=== PATIENT | male | born 1950 | race Caucasian/White ===

== ENCOUNTER → 2016-11-01 | Outpatient (CLI) | payer OTHER ==
[~2016-11-01] MED LIST: ALLOPURINOL 10100 M1 PO; ASA5UEC PO; CELEXA 10 MG TA10 M1 PO; CENTRUM SILVER1 EAC1 PO; CENTRUM SILVER1 EAC2 PO; CLONAZEPAM 0.50.5 M1 PO; COZAAR 50 MG TA50 M2 PO; CRESTOR5 MG PO; CYMBALTA30 MG PO; DESYREL50 MG PO; FAMOTIDINE40 MG PO; FISH OIL 1,0001 EAC5 PO; FLONASE 0.05%50 MCG NASAL; HYDROCODONE-AP1 EAC6 PO; IBUPROFEN 600600 M1 PO; LEVAQUIN 500 M500 MG PO; LISINOPRIL5 MG PO; MAGOX 400400 MG PO; MELOXICAM7.5 MG PO; PLAVIX 75 MG TA75 MG PO; PREDNISONE 20 M20 M1 PO; PROVENTIL HFA6.7 G1 INH; TOPROL XL50 MG PO; TRAZODONE HCL50 MG PO; VENTOLIN HFA 1818 GM INH; XANAX 0.5 MG0.5 MG PO; ZANTAC 150MG T150 MG PO; ZANTAC 7575 MG PO; ZPAK PO
== END ==
LOC: RAD 15:56
DX: D86.9 Sarcoidosis, unspecified (principal); R91.8 Other nonspecific abnormal finding of lung field

== ENCOUNTER → 2016-11-18 | Outpatient (CLI) | payer OTHER ==
--- NOTE | ~2016-11-18 | CNG ---
[facility] [place] [address] CYTO-NONGYN REPORT PROCEDURE Name: GENEVIEVE CORONEL Room #: REG FARNAZ Jess#: [id number] Admission: 11/18/16 Date of : 50 Discharge: Report #: [id number] Path Case #: [id number] CYTOPATHOLOGY REPORT COLLECTION DATE: 11/18/2016 RECEIVED DATE: 11/18/2016 SUBMITTING PHYS: Dr. Khalif Aceves OTHER PHYS: Dr. Yuriy Cadet CLINICAL HISTORY: Cough. SPECIMEN(S) RECEIVED: A.Bronchial brushings, RLL B.Bronchial brush rinse, RLL C.Bronchoalveolar lavage, RLL * * * * * * * * * * * * FINAL DIAGNOSIS: A. Lung, RLL, Bronchial brushings: NEGATIVE FOR MALIGNANT CELLS. Bronchial epithelial cells, pulmonary macrophages, and blood. B. Lung, RLL, Bronchial brush rinse: NEGATIVE FOR MALIGNANT CELLS. Bronchial epithelial cells, pulmonary macrophages, and mucus. C. Lung, RLL, Bronchoalveolar lavage: NEGATIVE FOR MALIGNANT CELLS. Bronchial epithelial cells, numerous pulmonary macrophages, and blood. PATHOLOGIST: Ldaan Coon M.D. REPORT ELECTRONICALLY SIGNED BY: Ladan Coon M.D. DATE/TIME: 11/19/2016 12:55 * * * * * * * * * * * * GROSS PATHOLOGY: A. Bronchial brushings, RLL: The specimen is labeled "Genevieve Coronel" and consists of three fixed slides. B. Bronchial brush rinse, RLL: The specimen is labeled "Berna Genevieve Santizo" and consists of a brush tip in fixative. One ThinPrep slide was prepared. C. Bronchoalveolar lavage, RLL: The specimen is submitted fixed, labeled "Berna Genevieve Santizo". Received by the Cytology Department is 20 mL of cloudy red fluid. One ThinPrep slide was prepared. (clt 11.18.2016) PRODUCTION PACKAGER(S): MEMO Nguyen(ASCP) INITIAL CPT CODE(S): A; [address] [address] CYTO-NONGYN REPORT PROCEDURE Name: GENEVIEVE CORONEL Room #: FROYLAN Mercado#: [id number] Admission: 11/18/16 Date of : 50 Discharge: Report #: [id number] Path Case #: [id number]; [id number] C; [id number] Professional services performed by [facility] at [address], [place] [address] Technical services performed by [facility] at [address] [place] [address]., [address], [place] [address]. [address], [facility] [address] [place] [address] PHONE: [phone] DIRECTOR: Javier Rodriguez M.D. * * * END OF REPORT * * *
--- NOTE | ~2016-11-18 | S ---
[facility] [place] [address] SURGICAL PATH RPT PROCEDURE Name: ERICGENEVIEVE SARMIENTO Room #: REG [facility] M.R.#: [id number] Admission: 11/18/16 Date of : 50 Discharge: Report #: [id number] Path Case #: [id number] PATHOLOGY REPORT COLLECTION DATE: 11/18/2016 RECEIVED DATE: 11/18/2016 SUBMITTING PHYS: Dr. Khalif Aceves OTHER PHYS: Dr. Yuriy Cadet SPECIMEN(S) RECEIVED: A.RLL biopsy forceps * * * * * * * * * * * * FINAL DIAGNOSIS: "RLL biopsy forceps", bronchial biopsy: - Scant strips of benign bronchial epithelial cells admixed with blood and fibrin. (See comment) COMMENT: Please see also the cytology specimen ([id number]). Clinical, radiographic and bronchoscopic correlation is recommended. (CLW:saud; d/t: 11/19/2016) PATHOLOGIST: Sabine May M.D. REPORT ELECTRONICALLY SIGNED BY: Sabine May M.D. DATE/TIME: 11/19/2016 14:31 * * * * * * * * * * * * GROSS PATHOLOGY: The specimen is received in formalin labeled "Genevieve Coronel RLL biopsy forceps". Received are multiple minute fragments of pale norwood soft tissue measuring 0.3 x 0.3 x 0.1 cm in aggregate dimensions. The specimen is filtered and entirely submitted in cassette A1. (CAA; 11/18/2016) CLINICAL HISTORY: None provided INITIAL CPT CODE(S): A; 01873 Professional services performed by [facility] at [facility] [address], [place] [address] Technical services performed by [facility] at [address] [place] [address] [place] [address] SURGICAL PATH RPT PROCEDURE Name: GENEVIEVE CORONEL Room #: REG FARNAZ Mercado#: [id number] Admission: 11/18/16 Date of : 50 Discharge: Report #: [id number] Path Case #: [id number] [place] [address]. [facility] [address] [address] PHONE: [phone] DIRECTOR: Javier Rodriguez M.D. * * * END OF REPORT * * *
--- NOTE | ~2016-11-18 | P ---
[facility] [place] [address] PROCEDURE REPORT Name: ERICGENEVIEVE SARMIENTO Room #: REG [facility].#: [id number] Admission: 11/18/16 Attend Phys: Khalif Aceves MD Discharge: Date of : 50 Report #: [id number] THIS REPORT FOR: //name// CC: DYANA Aceves DATE OF SERVICE: 11/18/2016 PROCEDURE: Bronchoscopy. REASON FOR BRONCHOSCOPY: 1. Pulmonary nodules. 2. History of sarcoidosis. PROCEDURE NOTATION: Discussed risks, benefits of planned procedure with the patient desired to proceed. After obtaining informed consent, the patient was brought to Interventional Radiology where he was placed on continuous cardiopulmonary monitoring and supplemental oxygen. Then, given 4% lidocaine nebulized to anesthetize the upper respiratory tract. Once accomplished, he received conscious sedation, a total of 5 mg of Versed and 25 mcg of fentanyl were titrated during the procedure to provide adequate sedation. Please see the nursing sedation log for further details. Once accomplished, bronchoscope was passed through an oral biteblock until the vocal cords were visualized. Vocal cords moved appropriately both before and after procedure. Then 1% lidocaine was instilled in the vocal cords to provide topical anesthesia. Bronchoscope was then passed in the trachea, 1% lidocaine was instilled in the tracheobronchial tree bilaterally to provide topical anesthesia once complete airways were surveyed. FINDINGS: Mainstem, lobar, segmental, and subsegmental bronchi were all explored and appeared patent with no significant anatomic disease or variation. There was some significant erythema predominance to the left-sided airways. Because of the radiographic abnormalities, the bronchoscope was then passed into the right lower lobe anterior segment. Using fluoroscopy, several brushings and forceps biopsies were obtained in area of 1 of the nodular lesions. Bronchial lavage was performed in this area at the end of procedure. The patient tolerated well with no noted complications. IMPRESSION: Nodular changes to the right lung with the patient known sarcoidosis status post bronchoscopy with fluoroscopic-guided transbronchial biopsies, brushings, and bronchoalveolar lavage. [address] [address] PROCEDURE REPORT Name: GENEVIEVE REYES Room #: REG Radha Deleon.#: [id number] Admission: 11/18/16 Attend Phys: Khalif Aceves MD Discharge: Date of : 50 Report #: [id number] PLAN: Await cytologic, histopathologic, and microbiologic tests. <ELECTRONICALLY SIGNED> By: Khalif Aceves MD 11/19/16 1508 1520 2334 Khalif Aceves MD /nt
== END ==
LOC: CATH 09:22
DX: D86.9 Sarcoidosis, unspecified (principal); R91.1 Solitary pulmonary nodule

== ENCOUNTER → 2017-01-14 | Outpatient (CLI) | payer OTHER ==
[2017-01-14 10:15] VITALS: BP 122/69
[2017-01-14 10:48] LABS: HEMOGLOBIN 14.4 gm/dL (14.0-18.0); MANUAL DIFF YES; MCH 30.2 pg (26.0-34.0); MCHC 34.3 g/dL (28.0-37.0); PLATELET COUNT 187 thou/uL (150-400); RBC 4.77 mil/uL (4.50-6.00); RDW 13.6 % (10.5-14.5); WBC 6.6 thou/uL (4.0-11.0)
[2017-01-14 11:04] LABS: CALCIUM 8.6 mg/dL (8.5-10.1); CREATININE 0.9 mg/dL (0.6-1.3); POTASSIUM 3.9 mmol/L (3.5-5.1); TOTAL BILIRUBIN 0.5 mg/dL (<0.1-1.0); TOTAL PROTEIN 6.6 g/dL (6.4-8.2)
[2017-01-14 11:06] LABS: ABSOLUTE NEUTROPHILS 4.6 thou/uL (1.4-8.2); TOTAL CELL COUNT 100
[2017-01-14 11:48] VITALS: BP 126/68
[2017-01-14 12:20] VITALS: BP 125/72
[2017-01-14 13:55] VITALS: BP 124/71
== END ==
LOC: OPONC 08:12
PROVIDERS: Internal Medicine Hematology & Oncology
DX: Z51.11 Encounter for antineoplastic chemotherapy (principal); C85.90 Non-Hodgkin lymphoma, unspecified, unspecified site

== ENCOUNTER → 2017-01-21 | Outpatient (CLI) | payer OTHER ==
[~2017-01-21] VITALS: Ht 167.6 cm; Wt 69.9 kg
[~2017-01-21] MED LIST changes: +QVAR8.7 G1 INH; +RITUXAN100 MG/10 IV
[2017-01-21 10:05] VITALS: BP 138/82
[2017-01-21 10:32] LABS: ABSOLUTE NEUTROPHILS 3.2 thou/uL (1.4-8.2); BASOPHILS 1.3 % (0.0-2.0); EOSINOPHILS 6.2 % (0.0-3.0); HEMATOCRIT 42.5 % (42.0-52.0); HEMOGLOBIN 14.7 gm/dL (14.0-18.0); LYMPHOCYTES 22.4 % (24.0-44.0); MCH 30.3 pg (26.0-34.0); MCHC 34.7 g/dL (28.0-37.0); MCV 87.5 fL (80.0-100.0); MONOCYTES 10.8 % (1.0-8.0); PLATELET COUNT 230 thou/uL (150-400); POLYS 59.3 % (36.0-66.0); RBC 4.85 mil/uL (4.50-6.00); RDW 13.2 % (10.5-14.5); WBC 5.4 thou/uL (4.0-11.0)
[2017-01-21 10:36] LABS: MANUAL DIFF NO
[2017-01-21 10:47] LABS: ALBUMIN 3.2 g/dL (3.4-5.0); CALCIUM 9.1 mg/dL (8.5-10.1); CREATININE 0.9 mg/dL (0.6-1.3); POTASSIUM 4.4 mmol/L (3.5-5.1); TOTAL BILIRUBIN 0.3 mg/dL (<0.1-1.0); TOTAL PROTEIN 7.1 g/dL (6.4-8.2)
[2017-01-21 12:00] VITALS: BP 137/75
[2017-01-21 12:30] VITALS: BP 127/65
[2017-01-21 13:00] VITALS: BP 134/77
[2017-01-21 13:30] VITALS: BP 123/70
== END ==
LOC: OPONC 06:17
PROVIDERS: Internal Medicine Hematology & Oncology
DX: Z51.11 Encounter for antineoplastic chemotherapy (principal); C85.90 Non-Hodgkin lymphoma, unspecified, unspecified site

== ENCOUNTER → 2017-01-28 | Outpatient (CLI) | payer OTHER ==
[2017-01-28 10:26] VITALS: BP 125/68
[2017-01-28 10:37] LABS: ABSOLUTE NEUTROPHILS 3.9 thou/uL (1.4-8.2); BASOPHILS 1.2 % (0.0-2.0); EOSINOPHILS 6.5 % (0.0-3.0); HEMATOCRIT 41.3 % (42.0-52.0); HEMOGLOBIN 14.2 gm/dL (14.0-18.0); LYMPHOCYTES 16.9 % (24.0-44.0); MCH 30.1 pg (26.0-34.0); MCHC 34.3 g/dL (28.0-37.0); MCV 87.7 fL (80.0-100.0); MONOCYTES 11.1 % (1.0-8.0); PLATELET COUNT 229 thou/uL (150-400); POLYS 64.3 % (36.0-66.0); RBC 4.71 mil/uL (4.50-6.00); RDW 13.2 % (10.5-14.5); WBC 6.1 thou/uL (4.0-11.0)
[2017-01-28 10:40] LABS: MANUAL DIFF NO
[2017-01-28 10:54] LABS: CALCIUM 9.1 mg/dL (8.5-10.1); POTASSIUM 4.1 mmol/L (3.5-5.1)
[2017-01-28 10:59] LABS: ALBUMIN 3.3 g/dL (3.4-5.0); TOTAL BILIRUBIN 0.6 mg/dL (<0.1-1.0); TOTAL PROTEIN 6.4 g/dL (6.4-8.2)
== END ==
LOC: OPONC 01-21 08:41
PROVIDERS: Internal Medicine Hematology & Oncology
DX: C85.90 Non-Hodgkin lymphoma, unspecified, unspecified site (principal)

== ENCOUNTER → 2017-02-04 | Outpatient (CLI) | payer OTHER ==
[2017-02-04 09:55] VITALS: BP 121/71
[2017-02-04 10:34] LABS: HEMATOCRIT 42.8 % (42.0-52.0); MCH 31.2 pg (26.0-34.0); MCHC 35.1 g/dL (28.0-37.0); MCV 88.8 fL (80.0-100.0); PLATELET COUNT 205 thou/uL (150-400); RBC 4.82 mil/uL (4.50-6.00); RDW 13.5 % (10.5-14.5); WBC 6.3 thou/uL (4.0-11.0)
[2017-02-04 10:40] LABS: MANUAL DIFF YES
[2017-02-04 10:49] LABS: ALBUMIN 3.2 g/dL (3.4-5.0); CREATININE 0.9 mg/dL (0.7-1.3); POTASSIUM 4.4 mmol/L (3.5-5.1); TOTAL BILIRUBIN 0.3 mg/dL (<0.1-1.0); TOTAL PROTEIN 6.9 g/dL (6.4-8.2)
[2017-02-04 11:43] LABS: ANISOCYTOSIS SLIGHT; TOTAL CELL COUNT 100
[2017-02-04 11:59] VITALS: BP 133/73
[2017-02-04 12:34] VITALS: BP 137/76
== END ==
LOC: OPONC 06:24
PROVIDERS: Internal Medicine Hematology & Oncology
DX: Z51.11 Encounter for antineoplastic chemotherapy (principal); C85.90 Non-Hodgkin lymphoma, unspecified, unspecified site

== ENCOUNTER → 2017-02-11 | Outpatient (CLI) | payer OTHER ==
[2017-02-11 10:42] LABS: ABSOLUTE NEUTROPHILS 3.3 thou/uL (1.4-8.2); BASOPHILS 0.9 % (0.0-2.0); EOSINOPHILS 8.4 % (0.0-3.0); HEMATOCRIT 43.1 % (42.0-52.0); HEMOGLOBIN 14.5 gm/dL (14.0-18.0); LYMPHOCYTES 18.2 % (24.0-44.0); MCH 29.8 pg (26.0-34.0); MCHC 33.7 g/dL (28.0-37.0); MCV 88.4 fL (80.0-100.0); MONOCYTES 11.9 % (1.0-8.0); PLATELET COUNT 188 thou/uL (150-400); POLYS 60.6 % (36.0-66.0); RBC 4.87 mil/uL (4.50-6.00); RDW 13.6 % (10.5-14.5); WBC 5.4 thou/uL (4.0-11.0)
[2017-02-11 10:44] LABS: MANUAL DIFF NO
[2017-02-11 10:49] LABS: CALCIUM 8.8 mg/dL (8.5-10.1); CREATININE 0.9 mg/dL (0.7-1.3); POTASSIUM 3.9 mmol/L (3.5-5.1)
[2017-02-11 10:54] LABS: ALBUMIN 3.3 g/dL (3.4-5.0); TOTAL BILIRUBIN 0.3 mg/dL (<0.1-1.0); TOTAL PROTEIN 7.2 g/dL (6.4-8.2)
[2017-02-11 11:27] VITALS: BP 123/70
== END ==
LOC: OPONC 08:46
PROVIDERS: Internal Medicine Hematology & Oncology
DX: Z51.11 Encounter for antineoplastic chemotherapy (principal); C85.90 Non-Hodgkin lymphoma, unspecified, unspecified site

== ENCOUNTER → 2017-03-10 | Outpatient (CLI) | payer OTHER | LOC: CAT 11:59 → LABMALL 13:14 | DX: R91.1 Solitary pulmonary nodule (principal); Z85.79 Personal history of other malignant neoplasms of lymphoid, hematopoietic and related tissues; Z85.46 Personal history of malignant neoplasm of prostate ==

== ENCOUNTER 2017-04-01 05:24 | Inpatient (IN) | payer OTHER ==
[~2017-04-01] VITALS: Ht 170.2 cm; Wt 69.0 kg
--- NOTE | ~2017-04-01 | O ---
[facility] [place] [address] OPERATIVE REPORT Name: ERICGENEVIEVE SARMINETO Room #: 548-I [facility] M.R.#: [id number] Admission: 04/01/17 Attend Phys: Angella Berry MD, Discharge: 04/02/17 Date of : 50 Report #: [id number] THIS REPORT FOR: //name// CC: Yuriy Berry DATE OF SERVICE: 04/01/2017 PREOPERATIVE DIAGNOSES: 1. Hiatal hernia. 2. Gastroesophageal reflux disease. 3. Lymphoma. 4. Hypertension. 5. Hypercholesterolemia. 6. Coronary artery disease status post percutaneous transluminal coronary angioplasty. POSTOPERATIVE DIAGNOSES: 1. Type 3 paraesophageal hernia. 2. Gastroesophageal reflux disease. 3. Lymphoma. 4. Hypertension. 5. Hypercholesterolemia. 6. Coronary artery disease status post percutaneous transluminal coronary angioplasty. PROCEDURES PERFORMED: 1. Laparoscopic repair of a type 3 paraesophageal hernia with cruroplasty and biomesh buttressing. 2. Laparoscopic placement of a LINX antireflux device. 3. Thorough esophagogastroduodenoscopy (EGD). SURGEON: Angella Berry M.D. USED CAR MAKE READY WORKER: Mike Presley M.D. ANESTHESIA: General endotracheal anesthesia. ESTIMATED BLOOD LOSS: Minimal (less than 10 mL). COMPLICATIONS: None appreciated. SPECIMENS: None. INDICATIONS: The patient is a 67-year-old male with a longstanding history of severe debilitating reflux that is recalcitrant to [facility] [address] [place] [address] OPERATIVE REPORT Name: GENEVIEVE REYES Room #: 548-I [facility] M.R.#: [id number] Admission: 04/01/17 Attend Phys: Angella Berry MD, Discharge: 04/02/17 Date of : 50 Report #: [id number] therapy. The patient underwent an EGD showing slight gastritis and esophagitis and then also underwent an upper GI swallow, which showed marked reflux. The patient underwent a Lowry pH probe, which showed a very high DeMeester Score and then underwent esophageal motility testing, which showed normal esophageal motility. Throughout the course of this, he did have evidence of a hiatal hernia seen on EGD as well. As such, indication was for the above-mentioned procedures with findings of a type 3 paraesophageal hernia being seen with the gastroesophageal junction as well as a large portion of the fundus contained within the distal mediastinum that required repair as well as LINX placement for antireflux purposes moving forward. DESCRIPTION OF PROCEDURE: After explaining the risks, benefits and alternatives of the procedure with the patient in detail in the preoperative holding area and obtaining written consent, the patient was brought to the operating room and placed supine on the operating room table. After conducting a thorough timeout procedure verifying correct patient and procedure, the patient was given general endotracheal anesthesia. Once adequate anesthesia was obtained, SCDs were placed on the patient's bilateral lower extremities. He was given a preoperative dose of antibiotics in line with the SCIP protocol. The patient's abdomen was prepped and draped in standard surgical sterile fashion. 5 mL of 0.5% Marcaine with epinephrine were used to anesthetize the skin in the right upper quadrant at the midclavicular line in a subcostal location. A #15 bladed scalpel was used to create a small skin saravanan at this location. A 5-mm Visiport was placed over 0 degree 5-mm laparoscope and was introduced through this incision site. Once intraabdominal placement was verified visually, the obturator for the trocar and laparoscope were both removed and the abdomen was insufflated to 15 mmHg using carbon dioxide gas. The laparoscope was changed to a 5-mm 30-degree laparoscope, which was reintroduced through this trocar. The entire abdomen was evaluated to ensure no injury upon entry. I now proceeded to place 3 additional working trocars in the left abdomen. A 5 mm port was placed 2 cm superior to the umbilicus and 2 cm to the patient's left, a 12 mm port was placed 5 cm lateral to that and then a final 5 mm port was placed in the extreme left lateral flank. All three additional trocars were placed under direct vision after anesthetizing the skin at each location with 5 mL of 0.5% Marcaine with epinephrine and I had created appropriately sized skin nicks using #15 bladed scalpel. The laparoscope was now placed in the 5 mm port just to the left of the patient's umbilicus, and he was placed in steep reverse Trendelenburg position. I now proceeded to place a Karen liver retractor in the subxiphoid location by anesthetizing the skin at that location with 5 mL of 0.5% Marcaine with epinephrine and I created a small skin saravanan at that location using #15 bladed scalpel. I utilized the obturator from the 5 mm port to penetrate the fascia at this level and then maneuvered the Karen liver retractor through this defect where it was positioned up under the left lobe of the liver and was held up against the posterior aspect of the anterior abdominal wall. We now had complete access to the hiatus and stomach. We had obvious evidence of a hiatal hernia with the fundus and gastroesophageal juncture [address] [address] OPERATIVE REPORT Name: GENEVIEVE REYES Room #: 548-I [facility] IN M.R.#: [id number] Admission: 04/01/17 Attend Phys: Angella Berry MD, Discharge: 04/02/17 Date of : 50 Report #: [id number] contained within the distal mediastinum. Gentle manual traction was placed on the stomach in an inferior direction, and I proceeded to open the pars flaccida using Harmonic scalpel to identify the base of the right stacie. I then scored up the peritoneal reflection on the right stacie from posterior to anterior, which allowed me to identify the gastroesophageal juncture contained within the mediastinum. The stomach was then reflected to the patient's right side. I identified the left stacie and in similar fashion, dissected up the left stacie. A window was now created posteriorly between the posterior vagus nerve and the esophagus and a Parkman drain was placed through this window and was used for retraction. I now extended the dissection and circumferentially dissected the hernia sac from the entire hiatus exposing the anterior and left lateral stacie. We freed the entire hiatus of any adhesions and completely reduced the hernia sac into the abdominal cavity. I now performed an extensive mediastinal dissection to take down all adhesions in the mediastinum that would attempt to cause retraction of the esophagus and stomach back up into the mediastinum. We now had at least 3 cm of intraabdominal esophagus that was not under tension to retract back up into the mediastinum. I now proceeded to repair the hiatal defect using numerous sutures of 0 Surgidac on the EndoStitch device to plicate the posterior crural pillars. This recreated the slit valve of the lower esophageal sphincter complex without creating undue tightness. After satisfied with that repair, I did elect to buttress the repair using a piece of Strattice biologic mesh that measured 6 x 8 cm in dimension. After appropriate hydration, an U-shaped notch was cut out of the mesh and it was placed through the retroesophageal window where it was anchored to the hiatus using sutures of 0 Surgidac as well as 10 mL of Tisseel on the Duplospray device. This was accomplished by folding the corners of the mesh down and spraying the Tisseel directly on the diaphragm and replacing the mesh into position. This gave us an excellently oriented buttressed repair of the crural defect. I now proceeded to ensure that all tubes were removed from the esophagus and let tension off of the Parkman drain in full and proceeded to size the esophagus for the appropriate LINX device. This measured a size 15 device in standard fashion and I now introduced the appropriate device into the abdominal cavity and placed it through the previously created retroesophageal window between the posterior vagus nerve and the esophagus. I then completed the bracelet by ensuring that one window was present in the clasped beads as per standard protocol. A confirmatory tug was performed and we were satisfied with the result. The sutures from the device were cut and removed entirely and the Enrique drain was removed. A thorough inspection was performed and we were satisfied with the crural closure as well as a biologic mesh buttressing and the position of the LINX device. No signs of injury were visualized whatsoever. I now performed a thorough EGD using the [employer] upper endoscope. I intubated the oropharynx and traversed down past the GE junction into the stomach with ease. A retroflexion view of the scope showed no further evidence of a hiatal hernia and the extrinsic compression of the LINX device was appropriate. The stomach was fully desufflated. The EGD scope was removed just cephalad to the GE junction and the LINX device where it was seen to pass easily past the LINX device on 5 separate [facility] [address] [place] [address] OPERATIVE REPORT Name: GENEVIEVE REYES Room #: 548-I DIS IN M.R.#: [id number] Admission: 04/01/17 Attend Phys: Angella Berry MD, Discharge: 04/02/17 Date of : 50 Report #: [id number] occasions without restriction. The EGD scope was now removed and passed off the field and I reentered the operative field after sterilely rescrubbing. The Karen liver retractor was now removed and the liver was healthy and uninjured. I now closed the 12-mm fascial incision using 0 PDS suture on the Nadir-Terrence needle under direct vision and tied this down under direct vision after reducing the insufflation pressure to 8 mmHg. All ports were now removed. The abdomen was fully desufflated. 4-0 Monocryl was used in a standard subcuticular fashion for all skin incisions and Dermabond glue was applied to all skin wounds. At the end of the procedure, all instrument, needle and sponge counts were correct. The patient tolerated the procedure without incident, was awakened in the operating room and transitioned to the recovery room in stable condition with no apparent complications. It should be noted that the Parkman drain was removed in full as well. <ELECTRONICALLY SIGNED> By: Angella Berry MD, FACS 04/02/17 1404 0942 1316 Angella Berry MD, FACS /nt
--- NOTE | ~2017-04-01 | EKG ---
[address] [address] ELECTROCARDIOGRAM REPORT Name: GENEVIEVE REYES Room #: 150-3 [facility]..#: [id number] Admission: 04/01/17 Attend Phys: Angella Berry MD, Discharge: Date of : 50 Report #: [id number] THIS REPORT FOR: //name// [facility] Test Date: 2017-04-01 Test Time: 06:39:39 Pat Name: GENEVIEVE REYES Department: Room: 150 3 Gender: M Zookeeper: KATIE : 1950 Requested By: Angella Berry Order Number: [id number] MD: Romero Jones Measurements Intervals Clements Rate: 69 P: 39 [place]: 181 QRS: 32 QRSD: 93 T: 62 QT: 402 QTc: 431 Interpretive Statements Sinus rhythm Abnormal R-wave progression, early transition Early repolarization Compared to ECG 03/07/2015 22:08:02 No significant change was found Electronically Signed On 04-01-2017 8:59:19 CDT by Romero Jones [email or web address] <ELECTRONICALLY SIGNED> By: Romero Jones MD, [facility] 04/01/17 0859 Romero Jones MD, [facility] /EPI
[2017-04-01 09:07] VITALS: BP 109/74
[2017-04-01 10:45] VITALS: BP 137/82
[2017-04-01 11:15] VITALS: BP 145/79
[2017-04-01 11:45] VITALS: BP 153/86
[2017-04-01 16:59] VITALS: BP 140/74
[2017-04-01 20:03] VITALS: BP 128/71
[2017-04-02 05:24] VITALS: BP 113/52
[2017-04-02 05:35] LABS: HEMATOCRIT 38.4 % (42.0-52.0); HEMOGLOBIN 13.2 gm/dL (14.0-18.0); MCH 30.8 pg (26.0-34.0); MCHC 34.4 g/dL (28.0-37.0); MCV 89.8 fL (80.0-100.0); RBC 4.27 mil/uL (4.50-6.00); RDW 14.2 % (10.5-14.5); WBC 10.3 thou/uL (4.0-11.0)
[2017-04-02 05:44] LABS: CALCIUM 8.8 mg/dL (8.5-10.1); CREATININE 1.1 mg/dL (0.7-1.3); POTASSIUM 4.2 mmol/L (3.5-5.1)
[2017-04-02 09:43] VITALS: BP 132/59
[2017-04-02] MEDS ORDERED: HYDROCODONE-ACE15 ML PO (11:23)
[2017-04-02] MEDS ORDERED: ZOFRAN ODT4 MG DISSOLVE (11:24)
[2017-04-02 12:27] VITALS: BP 132/59
[2017-04-08] MEDS ORDERED: RITUXAN100 MG/10 IV (11:09)
== END 2017-04-02 13:32 | disposition home or self-care (01) | DRG 327 ==
LOC: TBA 05:24 → OR 05:24 → 5S 10:57 → OR 11:31 → 5S 04-02 13:32
PROVIDERS: Surgery
PROC: 0DJ08ZZ Inspection of Upper Intestinal Tract, Via Natural or Artificial Opening Endoscopic (ICD-10-PCS; principal; 2017-04-01)
PROC: 0BUS4JZ (ICD-10-PCS; principal; 2017-04-01)
PROC: 0DV44CZ Restriction of Esophagogastric Junction with Extraluminal Device, Percutaneous Endoscopic Approach (ICD-10-PCS; principal; 2017-04-01)
DX: K44.9 Diaphragmatic hernia without obstruction or gangrene (principal); C85.90 Non-Hodgkin lymphoma, unspecified, unspecified site; K21.9 Gastro-esophageal reflux disease without esophagitis; I10 Essential (primary) hypertension; E78.00 Pure hypercholesterolemia, unspecified; I25.10 Atherosclerotic heart disease of native coronary artery without angina pectoris; Z98.62 Peripheral vascular angioplasty status; Z88.8 Allergy status to other drugs, medicaments and biological substances; Z88.0 Allergy status to penicillin; Z91.048 Other nonmedicinal substance allergy status; Z95.5 Presence of coronary angioplasty implant and graft; Z79.82 Long term (current) use of aspirin; Z79.899 Other long term (current) drug therapy
CPT/HCPCS: 10086; 50010; 50101; 50249; 50386; 50555; 50558; 50962; 51297; 51437; 52182; 52265; 53307; 54022; 54118; 54124; 55326; 55430; 56462; 56525; 56526; 56531; 57092; 62110; 62900; 70005

== ENCOUNTER → 2017-04-08 | Outpatient (CLI) | payer OTHER ==
[~2017-04-08] MED LIST changes: +HYDROCODONE-ACE15 ML PO; +ZOFRAN ODT4 MG DISSOLVE
[2017-04-08 10:53] LABS: ABSOLUTE NEUTROPHILS 4.2 thou/uL (1.4-8.2); BASOPHILS 0.9 % (0.0-2.0); EOSINOPHILS 7.8 % (0.0-3.0); HEMATOCRIT 41.3 % (42.0-52.0); HEMOGLOBIN 14.1 gm/dL (14.0-18.0); LYMPHOCYTES 12.8 % (24.0-44.0); MCH 30.6 pg (26.0-34.0); MCHC 34.1 g/dL (28.0-37.0); MCV 89.8 fL (80.0-100.0); MONOCYTES 10.6 % (1.0-8.0); PLATELET COUNT 221 thou/uL (150-400); POLYS 67.9 % (36.0-66.0); RBC 4.59 mil/uL (4.50-6.00); RDW 13.7 % (10.5-14.5); WBC 6.2 thou/uL (4.0-11.0)
[2017-04-08 10:54] VITALS: BP 127/82
[2017-04-08 10:54] LABS: MANUAL DIFF NO
[2017-04-08 11:15] LABS: ALBUMIN 3.1 g/dL (3.4-5.0); CALCIUM 8.9 mg/dL (8.5-10.1); CREATININE 0.9 mg/dL (0.7-1.3); POTASSIUM 4.2 mmol/L (3.5-5.1); TOTAL BILIRUBIN 0.3 mg/dL (<0.1-1.0)
== END ==
LOC: OPONC 06:22
PROVIDERS: Internal Medicine Hematology & Oncology
DX: Z51.11 Encounter for antineoplastic chemotherapy (principal); C85.90 Non-Hodgkin lymphoma, unspecified, unspecified site

== ENCOUNTER → 2017-06-10 | Outpatient (CLI) | payer OTHER ==
[~2017-06-10] VITALS: Ht 167.6 cm; Wt 69.4 kg
[~2017-06-10] MED LIST changes: +BACTRIM DS TAB1 EACH PO; +CLEOCIN HCL150 MG PO
[2017-06-10 10:30] VITALS: BP 124/76
[2017-06-10 11:03] LABS: HEMATOCRIT 43.1 % (42.0-52.0); HEMOGLOBIN 14.7 gm/dL (14.0-18.0); MCH 30.5 pg (26.0-34.0); MCHC 34.2 g/dL (28.0-37.0); MCV 89.3 fL (80.0-100.0); PLATELET COUNT 223 thou/uL (150-400); RBC 4.83 mil/uL (4.50-6.00); RDW 13.8 % (10.5-14.5)
[2017-06-10 11:13] LABS: CALCIUM 9.1 mg/dL (8.5-10.1); CREATININE 0.9 mg/dL (0.7-1.3); POTASSIUM 4.3 mmol/L (3.5-5.1)
[2017-06-10 11:15] LABS: MANUAL DIFF YES
[2017-06-10 11:18] LABS: ALBUMIN 3.4 g/dL (3.4-5.0); TOTAL BILIRUBIN 0.4 mg/dL (<0.1-1.0); TOTAL PROTEIN 7.1 g/dL (6.4-8.2)
[2017-06-10 12:11] LABS: ABSOLUTE NEUTROPHILS 0.1 thou/uL (1.4-8.2); ATYPICAL LYMPHS 1 %; PLATELET ESTIMATE NORMAL; TOTAL CELL COUNT 100
[2017-06-10 12:15] VITALS: BP 131/77
[2017-06-10 12:45] VITALS: BP 140/86
[2017-06-10 13:15] VITALS: BP 140/82
== END ==
LOC: OPONC 06-03 08:34
PROVIDERS: Internal Medicine Hematology & Oncology
DX: Z51.11 Encounter for antineoplastic chemotherapy (principal); C85.90 Non-Hodgkin lymphoma, unspecified, unspecified site

== ENCOUNTER → 2017-06-17 | Outpatient (CLI) | payer OTHER ==
[~2017-06-17] MED LIST changes: -BACTRIM DS TAB1 EACH PO; -CLEOCIN HCL150 MG PO
[2017-06-17 16:10] LABS: HEMATOCRIT 42.7 % (42.0-52.0); HEMOGLOBIN 14.5 gm/dL (14.0-18.0); MCH 30.3 pg (26.0-34.0); MCHC 33.9 g/dL (28.0-37.0); MCV 89.1 fL (80.0-100.0); PLATELET COUNT 209 thou/uL (150-400); RDW 13.8 % (10.5-14.5); WBC 3.8 thou/uL (4.0-11.0)
[2017-06-17 16:11] LABS: MANUAL DIFF YES
[2017-06-17 16:36] LABS: ABSOLUTE NEUTROPHILS 1.6 thou/uL (1.4-8.2); TOTAL CELL COUNT 100
[2017-06-17 16:37] LABS: ANISOCYTOSIS SLIGHT; POLYCHROMASIA SLIGHT
== END ==
LOC: OPONC 15:35
PROVIDERS: Internal Medicine Hematology & Oncology
DX: C88.4 Extranodal marginal zone B-cell lymphoma of mucosa-associated lymphoid tissue [MALT-lymphoma] (principal)

== ENCOUNTER → 2017-06-23 | Outpatient (CLI) | payer OTHER ==
[2017-06-23 14:09] LABS: ABSOLUTE NEUTROPHILS 2.8 thou/uL (1.4-8.2); BASOPHILS 1.3 % (0.0-2.0); EOSINOPHILS 0.8 % (0.0-3.0); HEMATOCRIT 42.8 % (42.0-52.0); HEMOGLOBIN 14.6 gm/dL (14.0-18.0); LYMPHOCYTES 25.1 % (24.0-44.0); MCH 30.2 pg (26.0-34.0); MCHC 34.1 g/dL (28.0-37.0); MCV 88.6 fL (80.0-100.0); MONOCYTES 11.4 % (1.0-8.0); PLATELET COUNT 184 thou/uL (150-400); POLYS 61.4 % (36.0-66.0); RBC 4.84 mil/uL (4.50-6.00); RDW 13.7 % (10.5-14.5); WBC 4.5 thou/uL (4.0-11.0)
[2017-06-23 14:10] LABS: MANUAL DIFF NO
== END ==
LOC: OPONC 13:35
PROVIDERS: Internal Medicine Hematology & Oncology
DX: C88.4 Extranodal marginal zone B-cell lymphoma of mucosa-associated lymphoid tissue [MALT-lymphoma] (principal)

== ENCOUNTER 2017-07-08 22:37 | Emergency (ER) | payer OTHER ==
[~2017-07-08] VITALS: Ht 170.2 cm; Wt 69.8 kg
[2017-07-08] MEDS ORDERED: BACTRIM DS TAB1 EACH PO (22:59)
[2017-07-08] MEDS ORDERED: CLEOCIN HCL150 MG PO (22:59)
== END 2017-07-08 23:05 | disposition home or self-care (01) ==
LOC: ER 22:37
DX: S60.572A Other superficial bite of hand of left hand, initial encounter (principal); D86.9 Sarcoidosis, unspecified; I25.10 Atherosclerotic heart disease of native coronary artery without angina pectoris; M10.9 Gout, unspecified; M81.0 Age-related osteoporosis without current pathological fracture; F32.9 Major depressive disorder, single episode, unspecified; K21.9 Gastro-esophageal reflux disease without esophagitis; I10 Essential (primary) hypertension; E78.00 Pure hypercholesterolemia, unspecified; J45.909 Unspecified asthma, uncomplicated; F10.99 Alcohol use, unspecified with unspecified alcohol-induced disorder; Z87.442 Personal history of urinary calculi; Z85.46 Personal history of malignant neoplasm of prostate; Z90.49 Acquired absence of other specified parts of digestive tract; Z88.8 Allergy status to other drugs, medicaments and biological substances; Z88.0 Allergy status to penicillin; W55.01XA Bitten by cat, initial encounter; Y93.89 Activity, other specified; Y92.89 Other specified places as the place of occurrence of the external cause; Y99.8 Other external cause status

== ENCOUNTER → 2017-08-05 | Outpatient (CLI) | payer OTHER ==
[~2017-08-05] MED LIST changes: +BACTRIM DS TAB1 EACH PO; +CLEOCIN HCL150 MG PO; +PROBIOTIC1 EAC1 PO
[2017-08-05 10:15] VITALS: BP 125/82
[2017-08-05 10:48] LABS: HEMATOCRIT 42.4 % (42.0-52.0); HEMOGLOBIN 14.3 gm/dL (14.0-18.0); MCH 29.2 pg (26.0-34.0); MCHC 33.9 g/dL (28.0-37.0); MCV 86.3 fL (80.0-100.0); PLATELET COUNT 205 thou/uL (150-400); RBC 4.91 mil/uL (4.50-6.00); RDW 13.2 % (10.5-14.5)
[2017-08-05 10:50] LABS: MANUAL DIFF YES
[2017-08-05 10:51] LABS: WBC 1.9 thou/uL (4.0-11.0)
[2017-08-05 11:09] LABS: ALBUMIN 3.4 g/dL (3.4-5.0); CALCIUM 9.1 mg/dL (8.5-10.1); CREATININE 0.8 mg/dL (0.7-1.3); POTASSIUM 3.9 mmol/L (3.5-5.1); TOTAL BILIRUBIN 0.5 mg/dL (<0.1-1.0); TOTAL PROTEIN 6.9 g/dL (6.4-8.2)
[2017-08-05 11:11] LABS: CHOLESTEROL 238 mg/dL (<200); HDL CHOLESTEROL 89 mg/dL (>40); LDL CHOLESTEROL 139 mg/dL (<100); TC:HDL 2.7 Ratio (Not establshd); TRIGLYCERIDE 51 mg/dL (<150); VLDL 10 mg/dL (<40)
[2017-08-05 11:27] LABS: ATYPICAL LYMPHS 3 %; PLATELET ESTIMATE NORMAL; TOTAL CELL COUNT 100
[2017-08-05 15:09] LABS: FREE T4 0.93 ng/dL (0.82-1.77); PSA TOTAL < 0.1 ng/mL (0.0-4.0)
[2017-08-07 10:09] LABS: FREE PSA < 0.01 ng/mL
== END ==
LOC: OPONC 00:26
PROVIDERS: Family Medicine; Internal Medicine Hematology & Oncology
DX: C85.90 Non-Hodgkin lymphoma, unspecified, unspecified site (principal)

== ENCOUNTER → 2017-08-12 | Outpatient (CLI) | payer OTHER ==
[2017-08-12 14:10] VITALS: BP 142/72
[2017-08-12 14:53] LABS: HEMATOCRIT 42.2 % (42.0-52.0); HEMOGLOBIN 14.3 gm/dL (14.0-18.0); MCH 29.3 pg (26.0-34.0); MCHC 33.9 g/dL (28.0-37.0); MCV 86.4 fL (80.0-100.0); PLATELET COUNT 189 thou/uL (150-400); RBC 4.88 mil/uL (4.50-6.00); RDW 13.1 % (10.5-14.5)
[2017-08-12 14:54] LABS: MANUAL DIFF YES
[2017-08-12 15:20] LABS: ABSOLUTE NEUTROPHILS 0.1 thou/uL (1.4-8.2); ATYPICAL LYMPHS 21 %; TOTAL CELL COUNT 100; TOXIC GRANULATION 1+
[2017-08-12 15:21] LABS: ANISOCYTOSIS SLIGHT
[2017-08-12 15:22] LABS: MICROCYTES SLIGHT
== END ==
LOC: OPONC 02:09
PROVIDERS: Internal Medicine Hematology & Oncology
DX: C85.80 Other specified types of non-Hodgkin lymphoma, unspecified site (principal); R89.9 Unspecified abnormal finding in specimens from other organs, systems and tissues
CPT/HCPCS: 91016

== ENCOUNTER → 2017-08-26 | Outpatient (CLI) | payer OTHER ==
[2017-08-26 14:45] LABS: HEMOGLOBIN 14.6 gm/dL (14.0-18.0); MCH 29.1 pg (26.0-34.0); MCHC 33.9 g/dL (28.0-37.0); MCV 85.8 fL (80.0-100.0); PLATELET COUNT 242 thou/uL (150-400); RBC 5.01 mil/uL (4.50-6.00); RDW 13.3 % (10.5-14.5)
[2017-08-26 14:47] LABS: MANUAL DIFF YES
[2017-08-26 14:49] LABS: WBC 1.3 thou/uL (4.0-11.0)
[2017-08-26 15:25] LABS: ABSOLUTE NEUTROPHILS 0.1 thou/uL (1.4-8.2); ATYPICAL LYMPHS 13 %; PLATELET ESTIMATE NORMAL; TOTAL CELL COUNT 100
== END ==
LOC: OPONC 08:20
PROVIDERS: Internal Medicine Hematology & Oncology
DX: C83.90 Non-follicular (diffuse) lymphoma, unspecified, unspecified site (principal)

== ENCOUNTER → 2017-09-16 | Outpatient (CLI) | payer OTHER ==
[2017-09-16 14:29] LABS: ABSOLUTE NEUTROPHILS 3.7 thou/uL (1.4-8.2); BASOPHILS 0.7 % (0.0-2.0); HEMATOCRIT 44.6 % (42.0-52.0); HEMOGLOBIN 14.9 gm/dL (14.0-18.0); MCH 28.7 pg (26.0-34.0); MCHC 33.4 g/dL (28.0-37.0); MCV 85.8 fL (80.0-100.0); MONOCYTES 11.1 % (1.0-8.0); PLATELET COUNT 180 thou/uL (150-400); POLYS 62.2 % (36.0-66.0); RDW 13.6 % (10.5-14.5); WBC 5.9 thou/uL (4.0-11.0)
[2017-09-16 14:32] LABS: MANUAL DIFF NO
== END ==
LOC: OPONC 00:20
PROVIDERS: Internal Medicine Hematology & Oncology
DX: C85.80 Other specified types of non-Hodgkin lymphoma, unspecified site (principal); R89.9 Unspecified abnormal finding in specimens from other organs, systems and tissues

== ENCOUNTER 2017-11-18 16:01 | Emergency (ER) | payer OTHER ==
[~2017-11-18] VITALS: Ht 170.2 cm; Wt 70.3 kg
--- NOTE | ~2017-11-18 | EKG ---
[address] [employer] [address] ELECTROCARDIOGRAM REPORT Name: GENEVIEVE REYES [id number] Admission: 11/18/17 Attend Phys: Discharge: 11/18/17 Date of : 50 Report #: [id number] THIS REPORT FOR: //name// [facility] ED Test Date: 2017-11-18 Test Time: 16:52:57 Pat Name: GENEVIEVE REYES Department: Room: Gender: M Grill Associate: AMADO : 1950 Requested By: Marcos Vance Order Number: [id number] MD: Romero Jones Measurements Intervals [place] Rate: 88 P: 54 FL: 172 QRS: 39 QRSD: 77 T: 59 QT: 355 QTc: 430 Interpretive Statements Sinus rhythm Early repolarization Compared to ECG 04/01/2017 06:39:39 No significant change was found Electronically Signed On 11-19-2017 15:50:39 [employer]INT [employer] INSPECT[employer] by Romero Jones [email or web address] <ELECTRONICALLY SIGNED> By: Romero Jones MD, [facility] 11/19/17 1550 1652 1652 Romero Jones MD, FACC /EPI
[2017-11-18 17:27] LABS: HEMOGLOBIN 14.7 gm/dL (14.0-18.0); MCH 29.7 pg (26.0-34.0); MCHC 34.3 g/dL (28.0-37.0); MCV 86.6 fL (80.0-100.0); PLATELET COUNT 182 thou/uL (150-400); RBC 4.97 mil/uL (4.50-6.00); RDW 15.2 % (10.5-14.5); WBC 4.7 thou/uL (4.0-11.0)
[2017-11-18 17:40] LABS: ANION GAP 7 mmol/L (7-16); BUN 17 mg/dL (7-18); CALCIUM 9.2 mg/dL (8.5-10.1); CHLORIDE 101 mmol/L (98-107); CO2 28 mmol/L (21-32); GLUCOSE 97 mg/dL (74-106); POTASSIUM 4.2 mmol/L (3.5-5.1); SODIUM 136 mmol/L (136-145)
[2017-11-18 17:53] LABS: ALBUMIN 3.5 g/dL (3.4-5.0); SGOT 35 U/L (15-37); SGPT 46 U/L (30-65); TOTAL BILIRUBIN 0.4 mg/dL (<0.1-1.0); TOTAL PROTEIN 7.2 g/dL (6.4-8.2); TROPONIN-I < 0.04 ng/mL (<0.06)
[2017-11-18 18:04] LABS: ABSOLUTE NEUTROPHILS 3.1 thou/uL (1.4-8.2)
[2017-11-18] MEDS ORDERED: PROMETHAZINE/C118 ML PO (19:00)
[2017-11-18] MEDS ORDERED: LEVAQUIN 750 M750 MG PO (19:00)
[2017-11-18 19:10] VITALS: BP 136/82
[2018-03-31] MEDS ORDERED: BREO ELLIPTA 11 EACH SPRAY (10:39)
[2018-05-26] MEDS ORDERED: ASPIRIN81 M2 PO (14:42)
== END 2017-11-18 19:10 | disposition home or self-care (01) ==
LOC: ER 16:01
PROVIDERS: Physician Assistant
DX: R05 Cough (principal); R06.02 Shortness of breath; D89.9 Disorder involving the immune mechanism, unspecified; I10 Essential (primary) hypertension; K21.9 Gastro-esophageal reflux disease without esophagitis; E78.00 Pure hypercholesterolemia, unspecified; J45.909 Unspecified asthma, uncomplicated; F41.9 Anxiety disorder, unspecified; F32.9 Major depressive disorder, single episode, unspecified; M10.9 Gout, unspecified; Z90.49 Acquired absence of other specified parts of digestive tract; Z85.46 Personal history of malignant neoplasm of prostate; Z87.442 Personal history of urinary calculi; Z88.5 Allergy status to narcotic agent; Z88.0 Allergy status to penicillin; Z88.8 Allergy status to other drugs, medicaments and biological substances

== ENCOUNTER → 2017-12-09 | Outpatient (CLI) | payer OTHER ==
[~2017-12-09] MED LIST changes: +ASPIRIN81 M2 PO; +BREO ELLIPTA 11 EACH SPRAY; +LEVAQUIN 750 M750 MG PO; +PROMETHAZINE/C118 ML PO
[2017-12-09 11:58] LABS: CALCIUM 8.9 mg/dL (8.5-10.1); CREATININE 0.9 mg/dL (0.7-1.3); HEMOGLOBIN 14.7 gm/dL (14.0-18.0); MCH 29.7 pg (26.0-34.0); MCHC 34.3 g/dL (28.0-37.0); MCV 86.6 fL (80.0-100.0); PLATELET COUNT 224 thou/uL (150-400); POTASSIUM 4.4 mmol/L (3.5-5.1); RBC 4.96 mil/uL (4.50-6.00); RDW 14.7 % (10.5-14.5); WBC 4.3 thou/uL (4.0-11.0)
[2017-12-09 12:05] LABS: TOTAL BILIRUBIN 0.3 mg/dL (<0.1-1.0); TOTAL PROTEIN 6.8 g/dL (6.4-8.2)
[2017-12-09 12:31] LABS: ABSOLUTE NEUTROPHILS 1.5 thou/uL (1.4-8.2)
[2017-12-09 12:46] VITALS: BP 126/80
== END ==
LOC: OPONC 03:29
PROVIDERS: Internal Medicine Hematology & Oncology
DX: Z51.11 Encounter for antineoplastic chemotherapy (principal); C83.90 Non-follicular (diffuse) lymphoma, unspecified, unspecified site; D70.9 Neutropenia, unspecified

== ENCOUNTER → 2017-12-19 | Outpatient (CLI) | payer OTHER | LOC: PET 09:10 | DX: C83.90 Non-follicular (diffuse) lymphoma, unspecified, unspecified site (principal); R91.8 Other nonspecific abnormal finding of lung field; J98.11 Atelectasis; Z90.49 Acquired absence of other specified parts of digestive tract ==

== ENCOUNTER → 2017-12-23 | Outpatient (CLI) | payer OTHER ==
[2017-12-23 14:37] LABS: HEMATOCRIT 43.3 % (42.0-52.0); HEMOGLOBIN 14.6 gm/dL (14.0-18.0); MCH 29.4 pg (26.0-34.0); MCHC 33.8 g/dL (28.0-37.0); MCV 87.2 fL (80.0-100.0); PLATELET COUNT 259 thou/uL (150-400); RBC 4.97 mil/uL (4.50-6.00); RDW 14.7 % (10.5-14.5); WBC 5.9 thou/uL (4.0-11.0)
[2017-12-23 15:05] LABS: ABSOLUTE NEUTROPHILS 3.5 thou/uL (1.4-8.2)
== END ==
LOC: OPONC 00:29
PROVIDERS: Internal Medicine Hematology & Oncology
DX: C83.90 Non-follicular (diffuse) lymphoma, unspecified, unspecified site (principal); R91.8 Other nonspecific abnormal finding of lung field

== ENCOUNTER → 2018-01-07 | Outpatient (CLI) | payer OTHER ==
[2018-01-07 14:35] LABS: HEMOGLOBIN 14.4 gm/dL (14.0-18.0); MCH 29.7 pg (26.0-34.0); MCHC 34.2 g/dL (28.0-37.0); MCV 86.9 fL (80.0-100.0); PLATELET COUNT 215 thou/uL (150-400); RBC 4.84 mil/uL (4.50-6.00); RDW 13.6 % (10.5-14.5); WBC 5.9 thou/uL (4.0-11.0)
[2018-01-07 14:58] LABS: ABSOLUTE NEUTROPHILS 3.2 thou/uL (1.4-8.2)
== END ==
LOC: OPONC 06:22
PROVIDERS: Internal Medicine Hematology & Oncology
DX: C83.90 Non-follicular (diffuse) lymphoma, unspecified, unspecified site (principal); D70.9 Neutropenia, unspecified

== ENCOUNTER → 2018-01-30 | Outpatient (CLI) | payer OTHER ==
[~2018-01-30] MED LIST changes: -ASPIRIN81 M2 PO; -BREO ELLIPTA 11 EACH SPRAY
== END ==
LOC: NUC 10:11
DX: R94.31 Abnormal electrocardiogram [ECG] [EKG] (principal); R06.02 Shortness of breath; I10 Essential (primary) hypertension; E78.5 Hyperlipidemia, unspecified

== ENCOUNTER → 2018-02-03 | Outpatient (CLI) | payer OTHER ==
[~2018-02-03] VITALS: Ht 167.6 cm; Wt 68.5 kg
[2018-02-03 10:30] VITALS: BP 122/72
[2018-02-03 10:32] LABS: HEMATOCRIT 43.1 % (42.0-52.0); HEMOGLOBIN 14.6 gm/dL (14.0-18.0); MCH 29.2 pg (26.0-34.0); MCHC 33.8 g/dL (28.0-37.0); MCV 86.5 fL (80.0-100.0); PLATELET COUNT 187 thou/uL (150-400); RBC 4.99 mil/uL (4.50-6.00); RDW 13.1 % (10.5-14.5); WBC 4.5 thou/uL (4.0-11.0)
[2018-02-03 10:42] LABS: CREATININE 0.8 mg/dL (0.7-1.3)
[2018-02-03 10:47] LABS: ALBUMIN 3.1 g/dL (3.4-5.0); TOTAL BILIRUBIN 0.3 mg/dL (<0.1-1.0); TOTAL PROTEIN 6.7 g/dL (6.4-8.2)
[2018-02-03 11:16] LABS: ABSOLUTE NEUTROPHILS 2.4 thou/uL (1.4-8.2); ATYPICAL LYMPHS 10 %; LARGE PLATELETS OCCASIONAL
== END ==
LOC: OPONC 02:19
PROVIDERS: Internal Medicine Hematology & Oncology
DX: Z51.11 Encounter for antineoplastic chemotherapy (principal); C83.90 Non-follicular (diffuse) lymphoma, unspecified, unspecified site; D70.9 Neutropenia, unspecified; R94.31 Abnormal electrocardiogram [ECG] [EKG]

== ENCOUNTER → 2018-03-31 | Outpatient (CLI) | payer OTHER ==
[~2018-03-31] MED LIST changes: +BREO ELLIPTA 11 EACH SPRAY
[2018-03-31 10:24] VITALS: BP 146/80
[2018-03-31 10:32] LABS: HEMATOCRIT 42.4 % (42.0-52.0); HEMOGLOBIN 14.4 gm/dL (14.0-18.0); MCH 29.2 pg (26.0-34.0); MCHC 33.9 g/dL (28.0-37.0); MCV 86.3 fL (80.0-100.0); PLATELET COUNT 171 thou/uL (150-400); RBC 4.92 mil/uL (4.50-6.00); RDW 14.2 % (10.5-14.5); WBC 4.8 thou/uL (4.0-11.0)
[2018-03-31 10:39] LABS: CREATININE 0.9 mg/dL (0.7-1.3)
[2018-03-31 10:45] LABS: ALBUMIN 3.3 g/dL (3.4-5.0); TOTAL BILIRUBIN 0.3 mg/dL (<0.1-1.0)
[2018-03-31 10:56] LABS: ABSOLUTE NEUTROPHILS 2.8 thou/uL (1.4-8.2)
== END ==
LOC: OPONC 00:19
PROVIDERS: Internal Medicine Hematology & Oncology
DX: Z51.11 Encounter for antineoplastic chemotherapy (principal); C85.90 Non-Hodgkin lymphoma, unspecified, unspecified site

== ENCOUNTER → 2018-07-23 | Outpatient (CLI) | payer OTHER ==
[~2018-07-23] MED LIST changes: +ASPIRIN81 M2 PO
[2018-07-23 10:31] LABS: ABSOLUTE NEUTROPHILS 3.3 thou/uL (1.4-8.2); BASOPHILS 0.2 % (0.0-2.0); EOSINOPHILS 7.2 % (0.0-3.0); HEMATOCRIT 43.8 % (42.0-52.0); LYMPHOCYTES 19.7 % (24.0-44.0); MCH 31.2 pg (26.0-34.0); MCHC 34.2 g/dL (28.0-37.0); MCV 91.1 fL (80.0-100.0); MONOCYTES 10.7 % (1.0-8.0); PLATELET COUNT 210 thou/uL (150-400); POLYS 62.2 % (36.0-66.0); RBC 4.81 mil/uL (4.50-6.00); RDW 14.6 % (10.5-14.5); WBC 5.3 thou/uL (4.0-11.0)
[2018-07-23 10:44] LABS: ALBUMIN 3.3 g/dL (3.4-5.0); CALCIUM 9.7 mg/dL (8.5-10.1); CREATININE 0.9 mg/dL (0.7-1.3); POTASSIUM 4.6 mmol/L (3.5-5.1); TOTAL BILIRUBIN 0.5 mg/dL (<0.1-1.0); TOTAL PROTEIN 7.4 g/dL (6.4-8.2)
[2018-07-23 10:53] VITALS: BP 135/80
== END ==
LOC: OPONC 00:24
PROVIDERS: Internal Medicine Hematology & Oncology
DX: Z51.11 Encounter for antineoplastic chemotherapy (principal); C85.90 Non-Hodgkin lymphoma, unspecified, unspecified site

== ENCOUNTER → 2018-08-27 | Outpatient (CLI) | payer OTHER | LOC: RAD 09:50 | DX: K21.9 Gastro-esophageal reflux disease without esophagitis (principal) ==

== ENCOUNTER → 2018-09-25 | Outpatient (CLI) | payer OTHER ==
[2018-09-25 09:50] VITALS: BP 141/92
[2018-09-25 10:21] LABS: ABSOLUTE NEUTROPHILS 3.4 thou/uL (1.4-8.2); EOSINOPHILS 4.1 % (0.0-3.0); HEMATOCRIT 42.6 % (42.0-52.0); HEMOGLOBIN 14.6 gm/dL (14.0-18.0); LYMPHOCYTES 17.5 % (24.0-44.0); MCH 30.9 pg (26.0-34.0); MCHC 34.2 g/dL (28.0-37.0); MCV 90.4 fL (80.0-100.0); MONOCYTES 11.5 % (1.0-8.0); PLATELET COUNT 178 thou/uL (150-400); POLYS 65.9 % (36.0-66.0); RBC 4.71 mil/uL (4.50-6.00); WBC 5.2 thou/uL (4.0-11.0)
[2018-09-25 10:34] LABS: ALBUMIN 3.4 g/dL (3.4-5.0); CALCIUM 9.3 mg/dL (8.5-10.1); CREATININE 0.9 mg/dL (0.7-1.3); POTASSIUM 3.7 mmol/L (3.5-5.1); TOTAL BILIRUBIN 0.4 mg/dL (<0.1-1.0); TOTAL PROTEIN 7.1 g/dL (6.4-8.2)
[2018-09-25 12:00] VITALS: BP 144/96
== END ==
LOC: OPONC 07:56
PROVIDERS: Internal Medicine Hematology & Oncology
DX: Z51.11 Encounter for antineoplastic chemotherapy (principal); C85.80 Other specified types of non-Hodgkin lymphoma, unspecified site

== ENCOUNTER → 2018-11-20 | Outpatient (CLI) | payer OTHER ==
[~2018-11-20] MED LIST changes: +FLUTICASONE INH; +SALMETEROL INH
[2018-11-20 10:17] VITALS: BP 135/87
[2018-11-20 10:31] LABS: ABSOLUTE NEUTROPHILS 3.2 thou/uL (1.4-8.2); BASOPHILS 1.1 % (0.0-2.0); HEMATOCRIT 42.5 % (42.0-52.0); HEMOGLOBIN 14.1 gm/dL (14.0-18.0); LYMPHOCYTES 18.5 % (24.0-44.0); MCH 30.2 pg (26.0-34.0); MCHC 33.2 g/dL (28.0-37.0); MCV 91.1 fL (80.0-100.0); MONOCYTES 11.8 % (1.0-8.0); PLATELET COUNT 191 thou/uL (150-400); POLYS 61.6 % (36.0-66.0); RBC 4.67 mil/uL (4.50-6.00); RDW 13.9 % (10.5-14.5); WBC 5.2 thou/uL (4.0-11.0)
[2018-11-20 10:49] LABS: ALBUMIN 3.4 g/dL (3.4-5.0); CALCIUM 9.4 mg/dL (8.5-10.1); CREATININE 0.9 mg/dL (0.7-1.3); POTASSIUM 3.9 mmol/L (3.5-5.1); TOTAL BILIRUBIN 0.6 mg/dL (<0.1-1.0); TOTAL PROTEIN 7.1 g/dL (6.4-8.2)
--- NOTE | 2018-11-20 14:35 | NUR ---
HERE FOR CYCLE 18 OF HIS RITUXAN FOR HIS LYMPHOMA. REPORTS DOING VERY WELL FROM A CANCER STANDPOINT. HAS BEEN HAVING ISSUE HOWEVER S/P LINX PROCEDURE WITH HIS SWALLOWING WHICH IS AFFECTING HIS ABILITY TO EAT, ESPECIALLY MEAT. ALSO BEGINNING TO HAVE TREMORS IN HIS HANDS, RESTLESS LEG SYNDROME AND BALANCE ISSUES. DOES NOT KNOW WHAT TO ATTRIBUTE THESE TO BUT HAS BEEN WORKED UP BY DR. GOLDEN AND HIS PCP. NOW HAS AN APPT WITH A NEUROLOGIST. ALSO HAS SOME EXERTIONAL DYSPNEA AND IS BEING FOLLOWED BY DR. ERAZO. PT HAS LONGSTANDING SARCOIDOSIS WELL. LABS CHECKED, PREMEDS GIVEN AND RITUXAN GIVEN PER TITRATION PROTOCOL STARTING AT 100MG/H AND MAXING AT 400MG/H. COMPLETED IN 3 HOURS. TOLERATED WITHOUT INCIDENT, NO S/S REACTION. WE RECEIVED ORDERS FOR ONE LAST TREATMENT IN 8 WEEKS. PT SCHEDULED FOR JANUARY 15. DISMISSED IN STABLE CONDITION.
== END ==
LOC: OPONC 01:02
PROVIDERS: Internal Medicine Hematology & Oncology
DX: C85.80 Other specified types of non-Hodgkin lymphoma, unspecified site (principal)

== ENCOUNTER → 2019-01-15 | Outpatient (CLI) | payer OTHER ==
[~2019-01-15] VITALS: Ht 170.2 cm; Wt 71.4 kg
[2019-01-15 10:34] LABS: HEMATOCRIT 41.9 % (42.0-52.0); HEMOGLOBIN 14.5 gm/dL (14.0-18.0); MCHC 34.5 g/dL (28.0-37.0); MCV 89.8 fL (80.0-100.0); RBC 4.67 mil/uL (4.50-6.00); RDW 13.3 % (10.5-14.5); WBC 4.5 thou/uL (4.0-11.0)
[2019-01-15 10:42] VITALS: BP 135/80
[2019-01-15 10:51] LABS: ALBUMIN 3.4 g/dL (3.4-5.0); CALCIUM 9.3 mg/dL (8.5-10.1); CREATININE 0.9 mg/dL (0.7-1.3); POTASSIUM 4.2 mmol/L (3.5-5.1); TOTAL BILIRUBIN 0.5 mg/dL (<0.1-1.0); TOTAL PROTEIN 7.2 g/dL (6.4-8.2)
--- NOTE | 2019-01-15 15:07 | NUR ---
IN FOR RITUXAN INFUSION FOLLOW UP FOR LYMPHOMA. PREMEDS GIVEN. TITRATED RITUXAN PER PROTOCOL WITH MAX RATE OF 400MG/HR, 200ML/HR AND TOLERATED WELL WITH NO ADVERSE REACTION NOTED. CBC AND CMP DRAWN FROM PERIPHERAL IV. FAXED RESULTS TO DR. GOLDEN. ALL LABS WITHIN NORMAL LIMITS. DISMISSED IN GOOD CONDITION.
== END ==
LOC: OPONC 08:15
PROVIDERS: Internal Medicine Hematology & Oncology
DX: C85.80 Other specified types of non-Hodgkin lymphoma, unspecified site (principal)